=== PATIENT | male | born 1965 | race Caucasian/White ===

== ENCOUNTER 2017-03-14 08:31 | Emergency (ER) | payer OTHER ==
[~2017-03-14] VITALS: Ht 170.2 cm; Wt 96.4 kg
[2017-03-14] MEDS ORDERED: TOPROL XL 25MG25 MG PO (08:41)
[2017-03-14] MEDS ORDERED: VIVLODEX5 MG PO (08:41)
[2017-03-14] MEDS ORDERED: AMLODIPINE BESYL5 MG PO (08:41)
[2017-03-14] MEDS ORDERED: ASPIR LOW81 MG PO (08:41)
[2017-03-14] MEDS ORDERED: ATORVASTATIN CA20 MG PO (08:41)
[2017-03-14] MEDS ORDERED: CEPHALEXIN500 M2 PO (09:09)
[2017-03-14] MEDS ORDERED: NORCO 325 MG-51 TA1 PO (09:09)
[2017-03-14 09:29] VITALS: BP 152/86
== END 2017-03-14 09:30 | disposition home or self-care (01) ==
LOC: ED 08:31
DX: S60.456A Superficial foreign body of right little finger, initial encounter (principal); W45.8XXA Other foreign body or object entering through skin, initial encounter
CPT/HCPCS: 90715

== ENCOUNTER → 2024-02-12 | Outpatient (CLI) | payer OTHER ==
[~2024-02-12] MED LIST: AMLODIPINE BESYL5 MG PO; ASPIR LOW81 MG PO; ATORVASTATIN CA20 MG PO; CEPHALEXIN500 M2 PO; NORCO 325 MG-51 TA1 PO; TOPROL XL 25MG25 MG PO; VIVLODEX5 MG PO
[2024-04-04 13:30] LABS: ALBUMIN 4.4 g/dL (3.5-5.0); CALCIUM 8.9 mg/dL (8.3-10.5); TOTAL PROTEIN 6.8 g/dL (6.4-8.3)
[2024-04-04 13:38] LABS: BASO # 0.04 K/mm3 (0.02-0.10); EOS # 0.38 K/mm3 (0.04-0.40); EOS % 4.2 % (0.0-4.0); HEMATOCRIT 48.1 % (42.0-52.0); HEMOGLOBIN 16.8 g/dL (13.5-18.0); LYMPH# 1.78 K/mm3 (1.50-4.00); MEAN CELL VOLUME 89 fl (78-100); MEAN CORPUSCULAR HEMOGLOBIN 31 pg (27-31); MEAN CORPUSCULAR HGB CONC 35 g/dL (33-37); MEAN PLATELET VOLUME 9.3 fl (7.4-10.4); MONO # 0.64 K/mm3 (0.20-0.80); NEU # 6.08 K/mm3 (1.40-6.50); PLATELET COUNT 237 K/mm3 (130-400); RED BLOOD COUNT 5.39 M/mm3 (4.20-5.60); RED CELL DISTRIBUTION WIDTH 11.8 % (11.5-14.5)
[2024-04-04 13:41] LABS: PROTHROMBIN TIME 10.1 SECONDS (9.0-12.0)
== END ==
LOC: LAB 12:30
DX: C49.9 Malignant neoplasm of connective and soft tissue, unspecified (principal); I10 Essential (primary) hypertension; K21.9 Gastro-esophageal reflux disease without esophagitis; E11.9 Type 2 diabetes mellitus without complications; H61.23 Impacted cerumen, bilateral; E78.2 Mixed hyperlipidemia; E56.9 Vitamin deficiency, unspecified; Z77.29 Contact with and (suspected) exposure to other hazardous substances

== ENCOUNTER 2024-05-15 08:40 | Emergency (ER) | payer OTHER ==
[~2024-05-15] VITALS: Ht 170.2 cm; Wt 96.4 kg
[2024-05-15] MEDS ORDERED: EFFIENT10 M1 PO (08:53)
[2024-05-15 10:27] VITALS: BP 142/85
== END 2024-05-15 10:30 | disposition home or self-care (01) ==
LOC: ED 08:40
DX: M25.552 Pain in left hip (principal)

== ENCOUNTER → 2024-08-26 | Outpatient (CLI) | payer OTHER ==
[~2024-08-26] MED LIST changes: +EFFIENT10 M1 PO; +Gadoterate 20 ML VIAL IV ONE
== END ==
LOC: RAD 07:21
DX: C49.9 Malignant neoplasm of connective and soft tissue, unspecified (principal); M62.89 Other specified disorders of muscle
CPT/HCPCS: A9575

== ENCOUNTER → 2024-10-12 | Outpatient (CLI) | payer OTHER ==
[~2024-10-12] MED LIST changes: -Gadoterate 20 ML VIAL IV ONE
== END ==
LOC: RAD 06:54
DX: Z01.89 Encounter for other specified special examinations (principal); C49.9 Malignant neoplasm of connective and soft tissue, unspecified